=== PATIENT | male | born 1995 | race Caucasian/White ===

== ENCOUNTER 2018-11-17 07:21 | Emergency (ER) | payer OTHER ==
--- NOTE | 2018-11-17 08:02 | ED ---
Throat Pain/Nasal Congestion - HPI Summary HPI Summary: 23 yr old with three days of sinus pressure, post nasal drip and yellow mucous when blowing nose. Symptoms are moderate. he feels he has a sinus infection. No fever. No SOB. He works [employer] in [employer]. No other complaints. - History of Current Complaint Chief Complaint: UCRespiratory Time Seen by Provider: 11/17/18 07:49 - Allergies/Home Medications Allergies/Adverse Reactions: Allergies Allergy/AdvReac Type Severity Reaction Status Date / Time No Known Allergies Allergy Verified 11/17/18 07:38 Home Medications: Home Medications Acetaminophen [Acetaminophen Extra Strength] 500 mg PO ONCE PRN 11/17/18 [ History Confirmed 11/17/18] Cpm/PE/Dm/Acetaminophen/Guaifn [Kls Cold & Flu Multi-Symp] 2 tab PO ONCE PRN 04/06 [History Confirmed 11/17/18] PMH/Surg Hx/FS Hx/Imm Hx Infectious Disease History: No Infectious Disease History: Denies: Traveled Outside the [place] in Last 30 Days - Family History Known Family History: Positive: None - Social History Occupation: Employed Full-time Alcohol Use: Occasionally Substance Use Type: Reports: Marijuana Substance Use Comment - Amount & Last Used: occasional use Smoking Status (MU): Former Smoker Type: Cigarettes Have You Smoked in the Last Year: Yes Review of Systems Constitutional: Negative Positive: Other - sinus pain, pressure, post nasal drip. All Other Systems Reviewed And Are Negative: Yes Physical Exam Triage Information Reviewed: Yes Vital Signs On Initial Exam: Initial Vitals Temp Pulse Resp BP Pulse Ox 98.2 F 72 15 134/79 100 11/17/18 07:39 11/17/18 07:39 11/17/18 07:39 11/17/18 07:39 11/17/18 07:39 Vital Signs Reviewed: Yes Appearance: Positive: Well-Appearing, No Pain Distress Skin: Positive: Warm, Skin Color Reflects Adequate Perfusion Head/Face: Positive: Normal Head/Face Inspection Eyes: Positive: EOMI, [place] ENT: Positive: Pharyngeal erythema, Nasal congestion, Nasal drainage, TMs normal , Sinus tenderness Neck: Positive: Nontender Respiratory/Lung Sounds: Positive: Clear to Auscultation, Breath Sounds Present Cardiovascular: Positive: RRR Abdomen Description: Negative: Distended Musculoskeletal: Positive: Strength/ROM Intact Neurological: Positive: Sensory/Motor Intact, Alert, Oriented to Person Place, Time, CN Intact II-III, Normal Gait, Speech Normal Psychiatric: Positive: Normal Diagnostics - Vital Signs Vital Signs Temp Pulse Resp BP Pulse Ox 11/17/18 07:39 98.2 F 72 15 134/79 100 - Laboratory Lab Statement: Any lab studies that have been ordered have been reviewed, and results considered in the medical decision making process. EENT Course/Dx - Course Course Of Treatment: 23 yr old with sinusitis. Rx Augmentin. - Diagnoses Provider Diagnoses: Sinusitis Discharge ED - Sign-Out/Discharge Documenting (check all that apply): Patient Departure All imaging exams completed and their final reports reviewed: No Studies - Discharge Plan Condition: Good Disposition: HOME Prescriptions: Amoxicillin/Clavulanate TAB* [Augmentin TAB 875*] 875 mg PO BID #20 tab Patient Education Materials: Sinusitis (ED) Referrals: No Primary Care Phys,NOPCP [Primary Care Provider] - [facility] [place]] - Billing Disposition and Condition Condition: GOOD Disposition: Home
== END 2018-11-17 08:05 | disposition home or self-care (01) ==
LOC: UCCORT 07:21
DX: J32.9 Chronic sinusitis, unspecified (principal); Z87.891 Personal history of nicotine dependence
CPT/HCPCS: 99202; G0463

== ENCOUNTER 2019-02-22 19:03 | Emergency (ER) | payer OTHER ==
[2019-02-22 19:29] VITALS: BP 156/80
--- NOTE | 2019-02-22 19:51 | UC ---
General HPI - HPI Summary HPI Summary: 23 yo gentleman c/o increasing pruritus rash. Noted itchy feeling on hands and feet over the last couple weeks. No fever / chills. No recent illness. No h/ a. No sore throat. No cp / sob. No GI issues. Itching mostly on hands / feet. Started otc lotrimin topical which helped. But over the last 6 days, new rash appeared all over, worse today, prompting visit here. Pruritic. Does not take medications, including otc po. Has never had a rxn similar to this. Works at [employer]. - History of Current Complaint Chief Complaint: UCRas Stated Complaint: RASH Time Seen by Provider: 02/22/19 19:50 Hx Obtained From: Patient Pain Intensity: 0 - Allergy/Home Medications Allergies/Adverse Reactions: Allergies Allergy/AdvReac Type Severity Reaction Status Date / Time No Known Allergies Allergy Verified 02/22/19 19:19 Home Medications: Home Medications Clotrimazole 1% TOPICAL (NF) [Lotrimin 1% TOPICAL (NF)] 1 applic TOPICAL PRN 09/04 [History] PMH/Surg Hx/FS Hx/Imm Hx Previously Healthy: Yes - Surgical History Surgical History: None - Family History Known Family History: Positive: None - Social History Alcohol Use: Occasionally Substance Use Type: Marijuana Substance Use Comment - Amount & Last Used: occasional use Smoking Status (MU): Current Some Day Smoker Type: Cigarettes Have You Smoked in the Last Year: Yes When Did the Patient Quit Smoking/Using Tobacco: 3 weeks ago Review of Systems All Other Systems Reviewed And Are Negative: Yes Constitutional: Positive: Negative Skin: Positive: Rash Eyes: Positive: Negative ENT: Positive: Negative Respiratory: Positive: Negative Cardiovascular: Positive: Negative Gastrointestinal: Positive: Negative Genitourinary: Positive: Negative Motor: Positive: Negative Neurovascular: Positive: Negative Musculoskeletal: Positive: Negative Neurological: Positive: Negative Psychological: Positive: Negative Is Patient Immunocompromised?: No Physical Exam Triage Information Reviewed: Yes Appearance: Well-Appearing, Well-Nourished Vital Signs: Initial Vital Signs Temp 99.9 F 02/22/19 19:21 Pulse 91 02/22/19 19:21 Resp 18 02/22/19 19:21 BP 156/80 02/22/19 19:21 Pulse Ox 98 02/22/19 19:21 Vital Signs Reviewed: Yes Eye Exam: Normal ENT Exam: Normal Neck exam: Normal Neck: Positive: Supple, Nontender, No Lymphadenopathy Respiratory Exam: Normal Respiratory: Positive: Chest non-tender, Lungs clear, Normal breath sounds, No respiratory distress, No accessory muscle use Cardiovascular Exam: Normal Cardiovascular: Positive: RRR, No Murmur, Pulses Normal, Brisk Capillary Refill Abdominal Exam: Normal Abdomen Description: Positive: Nontender Musculoskeletal Exam: Normal Musculoskeletal: Positive: Strength Intact, ROM Intact Neurological Exam: Normal - grossly nonfocal Psychological Exam: Normal - nad Skin Exam: Other - nondiaphoretic BLE feet - + dermatitis c/w fungal, b/n toes, over soles of feet. Legs arms face, torso - + maculopapular eruption mostly blanching, with urticarial rxn. + dermatographia. Course/Dx - Course Course Of Treatment: Precise etiology unclear. There is an allergic component. However, c/n exclude other (viral, etc). D/w Ryan coa / tx plan. Will check blood work, see below. See d/c instructions. Questions as posed answered to the best of my ability. Aware to go to the ED if any worse or new problems. - Diagnoses Provider Diagnosis: Rash and nonspecific skin eruption Discharge ED - Sign-Out/Discharge Documenting (check all that apply): Patient Departure All imaging exams completed and their final reports reviewed: No Studies - Discharge Plan Condition: Stable Disposition: HOME Prescriptions: Famotidine TAB* [Pepcid 20 MG TAB*] 20 mg PO DAILY #15 tab predniSONE 10 mg TAB [Deltasone 10 MG TAB*] 10 mg PO DAILY #14 tab Tolnaftate 1% CREAM* [Tinactin 1% CREAM*] 1 applic TOPICAL BID 21 Days #1 tube Patient Education Materials: Urticaria (ED), Acute Rash (ED) Forms: *Work Release Referrals: No Primary Care Phys,NOPCP [Primary Care Provider] - [facility] [place] [facility] [Outside] Additional Instructions: Blood work sent today. Hydrate. Please go to the Emergency Department for any worse or new problems. Please follow up with a primary care physician as soon as you are able. Double rinse laundry. Hypoallergenic laundry soap. 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 Avoid strong soaps / strong deodorant until symptoms resolved. Avoid red wine, beer until your symptoms improved. Avoid hot showers (warm ok) until symptoms improved. - Billing Disposition and Condition Condition: STABLE Disposition: Home
[2019-02-22] MEDS ORDERED: methylPREDNISolone 125 MG* 2 ML VIAL IM ONE (20:31)
[2019-02-22] MEDS ORDERED: diPHENhydraMINE PO* 25 MG PO ONE (20:33)
[2019-02-22] MEDS ORDERED: Famotidine TAB* 20 MG PO ONE (20:34)
[2019-02-23 11:41] LABS: ABS Eosinophils 0.1 10^3/ul (0-0.6); ABS Lymphocytes 2.9 10^3/ul (1.0-4.8); ABS Monocytes 0.7 10^3/ul (0-0.8); Eosinophil % 0.8 %; Hematocrit 44 % (42-52); Hemoglobin 15.2 g/dL (14.0-18.0); Lymphocyte % 33.5 %; Mean Corpuscular HGB Conc 35 g/dL (31-36); Mean Corpuscular Hemoglobin 31 pg (27-31); Mean Corpuscular Volume 89 fL (80-94); Mean Platelet Volume 8.2 fL (7.4-10.4); Platelet Count 269 10^3/uL (150-450); Red Blood Count 4.93 10^6 /uL (4.18-5.48); Red Cell Distribution Width 13 % (10-15); White Blood Count 8.7 10^3/uL (3.5-10.8)
[2019-02-23 11:43] LABS: Albumin 4.9 g/dL (3.2-5.2); Anion Gap 9 mmol/L (2-11); CO2 Carbon Dioxide 29 mmol/L (22-32); Chloride 102 mmol/L (101-111); Potassium 3.7 mmol/L (3.5-5.0); Sodium 140 mmol/L (135-145)
[2019-02-23 11:49] LABS: ALT 26 U/L (7-52); AST 20 U/L (13-39); Albumin/Globulin Ratio 1.8 (1-3); Alkaline Phosphatase 70 U/L (34-104); BUN/Creatinine Ratio 16.5 (8-20); Blood Urea Nitrogen 16 mg/dL (6-24); C Reactive Protein < 1.00 mg/L (<8.01); EGFR African American 116.1 (>60); EGFR Non-African American 95.9 (>60); Globulin 2.8 g/dL (2-4); Glucose 86 mg/dL (70-100); Total Protein 7.7 g/dL (6.4-8.9)
[2019-02-23 12:05] LABS: TSH (Thyroid Stimulating Horm) 2.92 mcIU/mL (0.34-5.60)
[2019-02-23 14:08] LABS: Erythrocyte Sed Rate 3 mm/Hr (0-14)
--- NOTE | 2019-02-24 07:11 | UC ---
- Progress Note Progress Note: cbc with diff wnl sed rate 3 cmp wnl tsh, crp wnl no change kamron Course/Dx - Diagnoses Provider Diagnoses: Rash and nonspecific skin eruption Discharge ED - Sign-Out/Discharge Documenting (check all that apply): Post-Discharge Follow Up All imaging exams completed and their final reports reviewed: No Studies - Discharge Plan Condition: Stable Disposition: HOME Prescriptions: Famotidine TAB* [Pepcid 20 MG TAB*] 20 mg PO DAILY #15 tab predniSONE 10 mg TAB [Deltasone 10 MG TAB*] 10 mg PO DAILY #14 tab Tolnaftate 1% CREAM* [Tinactin 1% CREAM*] 1 applic TOPICAL BID 21 Days #1 tube Patient Education Materials: Urticaria (ED), Acute Rash (ED) Forms: *Work Release Referrals: [facility] [place]] No Primary Care Phys,NOPCP [Primary Care Provider] - Additional Instructions: Blood work sent today. Hydrate. Please go to the Emergency Department for any worse or new problems. Please follow up with a primary care physician as soon as you are able. Double rinse laundry. Hypoallergenic laundry soap. 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 Avoid strong soaps / strong deodorant until symptoms resolved. Avoid red wine, beer until your symptoms improved. Avoid hot showers (warm ok) until symptoms improved. - Billing Disposition and Condition Condition: STABLE Disposition: Home
== END 2019-02-22 21:09 | disposition home or self-care (01) ==
LOC: UCCORT 19:03
DX: R21 Rash and other nonspecific skin eruption (principal); F17.210 Nicotine dependence, cigarettes, uncomplicated
CPT/HCPCS: 36415; 80053; 84443; 85025; 85652; 86140; 86618; 96372; 99213; A9270-GY; G0463; J2930; J7512